=== PATIENT | female | born 1965 | race Caucasian/White ===

== ENCOUNTER → 2016-12-05 | Outpatient (CLI) | payer OTHER ==
[2014-06-04 14:47] VITALS: BP 121/80
--- NOTE | 2016-12-05 13:13 | KCIC ---
Examination: Ultrasound left lateral elbow region HISTORY: History of lump in the left lateral elbow region Findings/ impression: There is a 2.8 x 0.7 x 3.3 cm hypoechoic elongated nonvascular lesion identified in the soft tissue of the left lateral elbow probably a lipoma, however if there is pain, consider MRI for further evaluation. Electronically signed by: Paolo Morton MD (12/05/2016 1:09 PM) [id number]
== END | disposition home or self-care (01) ==
LOC: KCIC US 08:04
PROVIDERS: ATTEND Nurse Practitioner Family
DX: L98.9 Disorder of the skin and subcutaneous tissue, unspecified (principal)
CPT/HCPCS: 76881

== ENCOUNTER → 2017-02-07 | Outpatient (CLI) | payer OTHER | END | disposition home or self-care (01) | LOC: KCIC 15:22 | DX: Z12.31 Encounter for screening mammogram for malignant neoplasm of breast (principal) | CPT/HCPCS: 77067 ==

== ENCOUNTER → 2018-05-29 | Outpatient (CLI) | payer OTHER ==
[2014-06-04 14:47] VITALS: BP 121/80
--- NOTE | 2018-05-29 16:38 | KCIC ---
CHEST PA LATERAL History: Benign hypertension. Shortness of breath. Wheezing.. Comparison with June 04, 2014 image but the report is not available. Cardiac silhouette size appears stable. No pneumothorax, pleural effusion or infiltrate. Regional skeleton appears grossly intact. IMPRESSION: No evidence of acute consolidating infiltrate. Electronically signed by: Jcarlos Werner MD (05/29/2018 4:35 PM) [facility]
== END | disposition home or self-care (01) ==
LOC: KCIC 12:41
PROVIDERS: ATTEND Nurse Practitioner Family
DX: I10 Essential (primary) hypertension (principal); J45.909 Unspecified asthma, uncomplicated
CPT/HCPCS: 71046

== ENCOUNTER → 2021-02-28 | Outpatient (CLI) | payer OTHER ==
[2014-06-04 14:47] VITALS: BP 121/80
--- NOTE | 2021-02-28 10:11 | KCIC ---
Bilateral digital screening mammograms with 3-D tomosynthesis: Reason for examination: Routine screening. Comparison is made to previous studies dated back to 07/19/2009. Bilateral mammograms in CC and oblique projections were obtained with 2-D imaging and 3-D tomosynthes is imaging on a Siemens Inspiration unit and reviewed on the workstation. Interpretation was made wit h the benefit of CAD. The skin and nipples show no abnormalities. No abnormal axillary lymph nodes are seen. The breast par enchyma shows scattered fatty and fibroglandular density. (Breast density: Category B.) There continu e to be small nodules consistent with intramammary lymph nodes bilaterally which are stable. There ar e no new dominant masses, suspicious calcifications or architectural distortion. Impression: No evidence of malignancy. Recommend routine screening. BI-RAD Category 2: Benign. "Our facility is accredited by the [employer] Mammography [employer]." This patient's information has been entered into a reminder system for the patient to be notified wit h the results of her examination and a target date for the next mammogram. Electronically signed by: Glendy Muniz MD (02/28/2021 10:08 AM) [email or web address]
== END ==
LOC: KCIC MAMMO 07:47
PROVIDERS: ATTEND Nurse Practitioner Family
DX: Z12.31 Encounter for screening mammogram for malignant neoplasm of breast (principal)
CPT/HCPCS: 77063; 77067